=== PATIENT | female | born 1940 | race Two or more races ===

== ENCOUNTER 2024-03-15 11:40 | Emergency (ER) | payer OTHER ==
[~2024-03-15] VITALS: Ht 162.6 cm; Wt 57.2 kg
[2024-03-15] MEDS ORDERED: CLONIDINE HCL 0.1 MG TABLET PO STA (12:44)
[2024-03-15 13:53] LABS: HEMATOCRIT 36.8 % (36.0-45.00); HEMOGLOBIN 12.3 g/dL (12.0-15.00); MEAN CELL VOLUME 90.1 fL (80.00-100.00); MEAN CORPUSCULAR HGB CONC 33.3 g/dl (32.0-36.0); PLATELET COUNT 256 K/uL (150-450); RED BLOOD COUNT 4.09 M/uL (4.00-6.00)
[2024-03-15 14:31] LABS: ALBUMIN 3.6 gm/dL (3.4-5.0); BILIRUBIN TOTAL 1.14 mg/dL (0.3-1.2); CALCIUM 9.1 mg/dL (8.5-10.1); CREATININE SERUM 0.76 mg/dL (0.55-1.02); GFR 72.33; GLOBULINA 3.9 G/DL (2.4-3.5); POTASSIUM 4.26 mEq/L (3.5-5.1); TOTAL PROTEIN 7.5 gm/dL (6.4-8.2)
[2024-03-15 18:28] LABS: PARTIAL THROMBOPLASTIN TIME 31.3 SECONDS (22.0-34.0); PROTHROMBIN TIME 10.5 SECONDS (9.0-11.5)
== END 2024-03-15 15:33 | disposition home or self-care (01) ==
LOC: ER 11:41
DX: R53.81 Other malaise (principal); I10 Essential (primary) hypertension; G51.0 Bell's palsy

== ENCOUNTER 2024-05-27 20:42 | Emergency (ER) | payer OTHER ==
[~2024-05-27] VITALS: Ht 162.6 cm; Wt 58.5 kg
[2024-05-27] MEDS ORDERED: TOPROL XL25 M1 PO (21:07)
[2024-05-27] MEDS ORDERED: HYDRALAZINE HCL50 MG PO (21:08)
[2024-05-27] MEDS ORDERED: PLAVIX75 MG (21:08)
[2024-05-27] MEDS ORDERED: AMLODIPINE BESY10 MG PO (21:09)
[2024-05-27] MEDS ORDERED: COZAAR100 MG PO (21:09)
[2024-05-27] MEDS ORDERED: JARDIANCE25 MG PO (21:10)
[2024-05-27 22:04] LABS: HEMATOCRIT 36.2 % (36.0-45.00); HEMOGLOBIN 12.2 g/dL (12.0-15.00); MEAN CELL VOLUME 86.3 fL (80.00-100.00); MEAN CORPUSCULAR HEMOGLOBIN 28.9 pg (27.00-32.0); MEAN CORPUSCULAR HGB CONC 33.6 g/dl (32.0-36.0); PLATELET COUNT 282 K/uL (150-450); RED CELL DISTRIBUTION WIDTH 15.3 % (11.5-14.5)
[2024-05-27 22:22] LABS: INR 1.06; PARTIAL THROMBOPLASTIN TIME 28.5 SECONDS (22.0-34.0); PROTHROMBIN TIME 11.5 SECONDS (9.0-11.5)
[2024-05-27 22:26] LABS: ALBUMIN 3.2 gm/dL (3.4-5.0); BILIRUBIN TOTAL 1.38 mg/dL (0.3-1.2); CALCIUM 8.8 mg/dL (8.5-10.1); CREATININE SERUM 0.92 mg/dL (0.55-1.02); GFR 58.02; GLOBULINA 4.3 G/DL (2.4-3.5); POTASSIUM 3.91 mEq/L (3.5-5.1); TOTAL PROTEIN 7.5 gm/dL (6.4-8.2)
== END 2024-05-27 23:03 | disposition home or self-care (01) ==
LOC: ER 20:43
PROVIDERS: General Practice
DX: R11.10 Vomiting, unspecified (principal); R53.1 Weakness; T50.905A Adverse effect of unspecified drugs, medicaments and biological substances, initial encounter; I10 Essential (primary) hypertension; E11.9 Type 2 diabetes mellitus without complications

== ENCOUNTER 2024-06-20 20:34 | Emergency (ER) | payer OTHER ==
[~2024-06-20] VITALS: Ht 162.6 cm; Wt 54.4 kg
[~2024-06-20 20:34] MED LIST: AMLODIPINE BESY10 MG PO; COZAAR100 MG PO; HYDRALAZINE HCL50 MG PO; JARDIANCE25 MG PO; PLAVIX75 MG; TOPROL XL25 M1 PO
[2024-06-20 21:07] VITALS: O2SAT 99
[2024-06-20 23:10] LABS: HEMOGLOBIN 12.4 g/dL (12.0-15.00); MEAN CELL VOLUME 86.9 fL (80.00-100.00); MEAN CORPUSCULAR HEMOGLOBIN 29.2 pg (27.00-32.0); MEAN CORPUSCULAR HGB CONC 33.6 g/dl (32.0-36.0); PLATELET COUNT 287 K/uL (150-450); RED BLOOD COUNT 4.26 M/uL (4.00-6.00); RED CELL DISTRIBUTION WIDTH 16.2 % (11.5-14.5)
[2024-06-20 23:33] LABS: INR 1.06; PARTIAL THROMBOPLASTIN TIME 28.2 SECONDS (22.0-34.0); PROTHROMBIN TIME 11.5 SECONDS (9.0-11.5)
[2024-06-20 23:38] LABS: ALBUMIN 3.1 gm/dL (3.4-5.0); BILIRUBIN TOTAL 1.11 mg/dL (0.3-1.2); CALCIUM 8.7 mg/dL (8.5-10.1); CREATININE SERUM 0.76 mg/dL (0.55-1.02); GFR 72.33; GLOBULINA 3.5 G/DL (2.4-3.5); POTASSIUM 3.81 mEq/L (3.5-5.1); TOTAL PROTEIN 6.6 gm/dL (6.4-8.2)
[2024-06-21] MEDS ORDERED: MELOXICAM15 MG PO (02:00)
[2024-06-21 02:05] VITALS: BP 146/78
== END 2024-06-21 02:06 ==
LOC: ER 20:34
PROVIDERS: General Practice
DX: R29.898 Other symptoms and signs involving the musculoskeletal system (principal); R53.1 Weakness; I10 Essential (primary) hypertension; E11.9 Type 2 diabetes mellitus without complications
CPT/HCPCS: 36415; 70460; 71045; 72131; 93005; 99284; Q9965